=== PATIENT | male | born 1995 | race Caucasian/White ===

== ENCOUNTER 2023-05-04 16:11 | Emergency (ER) | payer OTHER ==
[~2023-05-04] VITALS: Ht 175.3 cm; Wt 78.6 kg
[2023-05-04 16:12] VITALS: TEMP 98.3
[2023-05-04] MEDS ORDERED: METAL LOCK LOOP XX ONE (18:15)
[2023-05-04] MEDS ORDERED: NEOSPORIN OINT 0.9 GM PKT TOP ONE (18:30)
[2023-05-04 18:34] VITALS: BP 139/99; O2SAT 97
== END 2023-05-04 18:39 | disposition home or self-care (01) ==
LOC: M ED 16:11
DX: S61.211A Laceration without foreign body of left index finger without damage to nail, initial encounter (principal); W31.2XXA Contact with powered woodworking and forming machines, initial encounter; Y92.009 Unspecified place in unspecified non-institutional (private) residence as the place of occurrence of the external cause; Y93.H3 Activity, building and construction; Y99.8 Other external cause status